=== PATIENT | female | born 1965 | race African-American/Black ===

== ENCOUNTER 2019-12-21 10:50 | Inpatient (IN) ==
[2019-12-21 11:14] VITALS: BMI 28.3
--- NOTE | 2019-12-21 12:11 | DR.AMS ---
HPI Time Seen Time Seen by Provider: 12/21/19 12:00 PCP Primary Care Physician: RUSSELL HPI Comment HPI Comment: PATIENT IS 54YR OLD FEMALE IN ER WITH ALTERED MENTAL STATUES AND MENTAL HEALTH ABNORMALITY GOING ON FOR PAST ONE MONTH. PATIENT IS NOT ANSWERING QUESTIONS CURRENTLY FROM ME. SAID SHE IS NOT EATING AND IS HALLUCINATING. THIS MORNING WAS SITTING ON THE PORCH OF HER NEIGHBOR TRYING TO GET IN THAT HOUSE. FAMILY HAVE NOT OBSERVE COUGH, CONGESTION, VOMITING OR DIARRHEA. PATIENT IS PARANOID. HAVE MILD ANXIETY THAT SHE TAKES XANAX FOR. DAVID JAY IS NOT SLEEPING WELL FOR SEVERAL DAYS. Complaint Cheif Complaint Doctors Comments: AMS AND MENTAL HEALTH ISSUES FOR PAST ONE MONTH. Chief Complaint:: PT'S FAMILY STATES PT HAS BEEN HAVING SOME MENTAL ISSUES THE PAST MONTH. PT'S STATES PT DIDNT SLEEP ALL NIGHT SHE WAS UP AND DOWN. PT'S STATES SHE WAS CONFUSED AND WAS TRYING TO GET INTO THE NEIGHBORS HOUSE THISMORNING AND DIDN'T KNOW WHERE SHE WAS. PT IS NOT RESPONDING VERBALLY. PT HAS A TIGHT BOX TENDER TO A VITAMIN WATER BOTTLE. PT WILL NOT OPEN EYES. PT RESPONDS TO VERBAL STIMULI. COVID-19 Coronavirus risk:travel/contact w/high risk person: No Has patient experienced Coronavirus symptoms: No Source History Provided: Family Member and EMS Mode of Arrival Mode of Arrival: EMS Timing Onset of Chief Complaint: 12/21/19 Came On: Gradually Symptoms: Worsening Duration Duration: Constant Duration: Weeks Quality Quality: Change in Behavior and Confusion Severity Severity: Severe Context Recent: None History Of: None Associated Signs and Symptoms Associated Signs and Symptoms: Generalized Weakness, Change in Behavior, Confusion and Decreased Oral Intake PMH PMH Past Medical History: Yes Past Medical History: Asthma, GERD and Hypertension Past Surgical History: Yes Surgical History: Hysterectomy Family History History of Family Medical Conditions: No Social History Does any household member use tobacco: No Alcohol Use: None Do you use any recreational Drugs:: No Lives With: Family Lives Where: Home Travel Risk Coronavirus risk:travel/contact w/high risk person: No Has patient experienced Coronavirus symptoms: No Infectious screening In the last 2 months have you had wt loss of >10#?: NO Have you had fever, night sweats or hemotysis?: No Have you traveled outside the country in the last 6 months?: No Isolation: Standard ROS Review of Systems Constitutional: See HPI, Weakness, Fatigue, Loss of Appetite (NOT EATING OR DRINKING FLUID.) and Other (PATIENT NOT COMMUNICATING AT THIS TIME. BY BEDSIDE GIVEN HISTORY.); negative Fever Eyes: No Symptoms Reported and See HPI ENTM: No Symptoms Reported and See HPI; negative Nose Discharge and Nose Congestion Respiratoy: No Symptoms Reported and See HPI; negative Moist Cough, Short of Breath and Wheezing Cardiovascular: No Symptoms Reported and See HPI; negative Chest Pain and Edema Gastrointestinal/Abdominal: No Symptoms Reported and See HPI; negative Abdominal Pain, Diarrhea and Vomiting Genitourinary: No Symptoms Reported and See HPI; negative Dysuria Neurological: See HPI and Weakness; negative Dizziness Musculoskeletal: No Symptoms Reported and See HPI; negative Back Pain and Muscle Pain Integumentary: See HPI and Dryness; negative Change in Color, Rash and Juandice Hematologic/Lymphatic: No Symptoms Reported and See HPI; negative Easy Bruising and Swollen Glands Endocrine: See HPI and Decreased Appetite; negative Increased Urine (DECREASE URINE OUT PUT.) Psychiatric: No Symptoms Reported and See HPI All Other Systems: Reviewed and Negative PE Vitals Vital Signs: Temp Pulse Resp BP Pulse Ox 12/21/19 10:50 98.9 F 127 H 22 154/103 98 02/19/12 20:04 148/90 General Limitations: Other (NOT COMMUNICATING.) General Appearance: Alert and In No Apparent Distress Head Head Exam: Normal Inspection and Atraumatic Head Exam Physical: Other (NONE NOTED.) Eyes Eye exam: Normal Appearance; negative Scleral Icterus and Conjunctival Injection Pupils: Regular, Round: Bilateral and Reactive: Bilateral ENT ENT Exam: Normal Exam, Normal Oropharynx, Normal External Ear Exam and TM's Normal Bilaterally External Ear Exam: Normal External Inspection; negative Mastoid Tenderness TM/Canal Exam: Bilateral: Normal Nose Exam: Normal Nose Exam; negative Sinus Tenderness, Nasal Deviation and Septal Hematoma Mouth Exam: Normal Inspection; negative Lip Swelling and Tongue Swelling Throat Exam: Normal Inspection; negative Tonsillar Erythema, Tonsillomegaly and Tonsillar Exudate Neck Neck Exam: Normal Inspection and Trachea Midline; negative Tenderness and Lymphadenopathy Chest Chest Inspection: Normal Inspection and Symmetric Chest Wall Rise; negative Tenderness Respiratory Respiratory Exam: Normal Lung Sounds Bilat; negative Accessory Muscle Use, Chest Wall Tenderness and Respiratory Distress Respiratory Exam: Bilateral: Clear to Auscultation Cardiovascular Cardiovascular Exam: Regular Rate, Normal Rhythm and Normal Heart Sounds; negative Systolic Murmur and Diastolic Murmur Abdominal Exam Abdominal Exam: Normal Inspection, Normal Bowel Sounds and Soft; negative Tenderness Extremities Extremities Exam: Normal Inspection; negative Tenderness, Normal Capillary Refill and Edema Back Back Exam: Normal Inspection; negative (R) CVA Tenderness, (L) CVA Tenderness and Paraspinal Tenderness Neurological Neurological Exam: Alert (EYES KEPT CLOSE.); negative Motor Sensory Deficit Speech: Other Cranial Nerve Exam: Gag reflex (XI): Normal Upper Motor Neuron Exam: Babinski Sign: Normal Psychological Psychiatric Exam: Flat Affect Skin Skin Exam: Dry MDM Additional Information Obtained Additional Information Obtained From: Old Records and Family Differential Diagnosis Metabolic: Dehydration, Hypercalcemia, Hypernatremia, Hypoglycemia and Hyponatremia Structural: CVA and Mass Lesion Infectious: Sepsis and UTI (HALLUCINATIONS, DELUSIONS, AL, PNEUMONIA) Environmental: Hyperthermia and Hypothermia COURSE Treatment Treatment: SEE ORDERS. NS 1L IV BOLUS. Consultation Consultation Comments: DISCUSSED PATIENT WITH LOU BORGES. HE WILL ADMIT PATIENT. Education/Counseling Education/Counseling: Patient Educated On: Diagnosis and Needs for Follow Up ROR Labs Reviewed Laboratory Results Reviewed?: Yes Result Diagrams: 12/26/19 04:45 12/26/19 04:45 Laboratory: WBC 8.2 X10^3/uL (3.6-10.0) 12/21/19 12: RBC 4.59 X10^6/uL (3.5-5.4) 12/21/19 12:19 Hgb 13.6 g/dL (12.0-16.0) 12/21/19 12:19 Hct 41.0 % (36.0-47.0) 12/21/19 12:19 MCV 89.3 fL (80.0-100.0) 12/21/19 12:19 MCH 29.7 pg (27.0-34.0) 12/21/19 12:19 MCHC 33.2 g/dL (33.0-35.0) 12/21/19 12:19 RDW 14.5 % (11.6-16.5) 12/21/19 12:19 Plt Count 240 X10^3/uL (150.0-450.0) 12/21/19 12:19 MPV 8.5 fL (7.4-11.0) 12/21/19 12:19 Neut % (Auto) 77.5 % (42.0-75.0) H 10/16/20 12:19 Lymph % (Auto) 14.1 % (21.0-51.0) L 12/21/19 12:19 [place] % (Auto) 7.0 % (0.0-13.0) 12/21/19 12:19 Eos % (Auto) 0.6 % (0.9-2.9) L 12/21/19 12:19 Baso % (Auto) 0.8 % (0.2-1.0) 12/21/19 12:19 Neut # (Auto) 6.3 x10^3/uL (2.2-4.8) H 12/21/19 12:19 Lymph # (Auto) 1.2 X10^3/uL (1.3-2.9) L 12/21/19 12:19 [place] # (Auto) 0.6 x10^3/uL (0.3-0.8) 12/21/19 12:19 Eos # (Auto) 0.1 x10^3/uL (0.0-0.2) 12/21/19 12:19 Baso # (Auto) 0.1 X10^3/uL (0.0-0.1) 12/21/19 12:19 Absolute Nucleated RBC 0.1 /100WBC 12/21/19 12:19 Sodium 144 mmol/L (136-145) 12/21/19 12:19 Corrected Sodium TNP 12/21/19 12:19 Potassium 4.1 mmol/L (3.5-5.1) 12/21/19 12:19 Chloride 107 mmol/L (98-107) 12/21/19 12:19 Carbon Dioxide 23.4 mmol/L (21-32) 12/21/19 12:19 BUN 26 mg/dL (7-18) H 12/21/19 12:19 Creatinine 1.42 mg/dL (0.55-1.02) H 12/21/19 12:19 Est GFR (MDRD) Af Amer 49 (>60) L 12/21/19 12:19 Est GFR (MDRD) Non-Af 41 (>60) L 12/21/19 12:19 Glucose 93 mg/dL (65-99) 12/21/19 12:19 Calcium 9.4 mg/dL (8.5-10.1) 12/21/19 12:19 Corrected Calcium TNP 12/21/19 12:19 Magnesium 2.5 mg/dL (1.7-2.9) 12/21/19 12:19 Total Bilirubin 0.40 mg/dL (0.2-1.0) 12/21/19 12:19 AST 49 Units/L (15-37) H 12/21/19 12:19 ALT 52 Units/L (12-78) 12/21/19 12:19 Alkaline Phosphatase 118 Units/L (46-116) H 12/21/19 12:19 Creatine Kinase 2401 Units/L (26-192) H 12/21/19 12:19 CK-MB (CK-2) 7.9 ng/mL (0-4.0) H* 12/21/19 12:19 CK/CKMB % Calc 0.3 % (<4) 12/21/19 12:19 Troponin I < 0.02 ng/mL (0-1.5) 12/21/19 12:19 Total Protein 9.3 g/dL (6.4-8.2) H 12/21/19 12:19 Albumin 3.9 g/dL (3.4-5.0) 12/21/19 12:19 Globulin 5.4 g/dL (2.5-4.5) H 12/21/19 12:19 Albumin/Globulin Ratio 0.7 Ratio (1.1-2.1) L 12/21/19 12:19 TSH 3rd Generation 0.275 uIU/mL (0.358-3.74) L 12/21/19 12:19 Salicylates < 2.8 mg/dL (2.8-20) L 12/21/19 12:19 Acetaminophen 0.0 ug/mL (10-30) L 12/21/19 12:19 Ethyl Alcohol mg/dL < 3 mg/dL (0-19.9) 12/21/19 12:19 XRAY XRAY Interpreted by: Radiologist (REPORTS NOTED AND DISCUSSED WITH PATIENT AND HER SON.) and Self EKG Rhythm: ST Opioid Opioid Risk Tool Age (Charlie box if 16-45): No History of Preadolescent Sexual Abuse: No Total: 0 Total Score Risk Category: Low Risk Copyright: Adrian LR predicting aberrant behaviors Diagnosis Discharge Problem: Rhabdomyolysis, AMS (altered mental status), Acute dehydration, Abnormal TSH Instructions Instructions: Rhabdomyolysis Confusion Dehydration, Adult, [id number] Psychosis Hypertension, [id number] Form - Blood Pressure Record Sheet Delirium Managing Your Hypertension Forms: Excuse From Work or School Precautions for COVID19 Patient Portal Social Distancing
[2019-12-21 12:30] LABS: BASOPHILS # (AUTO) 0.1 X10^3/uL (0.0-0.1); BASOPHILS % (AUTO) 0.8 % (0.2-1.0); EOSINOPHILS # (AUTO) 0.1 x10^3/uL (0.0-0.2); EOSINOPHILS % (AUTO) 0.6 % (0.9-2.9); HEMOGLOBIN 13.6 g/dL (12.0-16.0); LYMPHOCYTES # (AUTO) 1.2 X10^3/uL (1.3-2.9); LYMPHOCYTES % (AUTO) 14.1 % (21.0-51.0); MEAN CORPUSCULAR HEMOGLOBIN 29.7 pg (27.0-34.0); MEAN CORPUSCULAR HGB CONC 33.2 g/dL (33.0-35.0); MEAN CORPUSCULAR VOLUME 89.3 fL (80.0-100.0); MEAN PLATELET VOLUME 8.5 fL (7.4-11.0); MONOCYTES # (AUTO) 0.6 x10^3/uL (0.3-0.8); NEUTROPHILS # (AUTO) 6.3 x10^3/uL (2.2-4.8); NEUTROPHILS % (AUTO) 77.5 % (42.0-75.0); PLATELET COUNT 240 X10^3/uL (150.0-450.0); RED BLOOD COUNT 4.59 X10^6/uL (3.5-5.4); RED CELL DISTRIBUTION WIDTH 14.5 % (11.6-16.5); WHITE BLOOD COUNT 8.2 X10^3/uL (3.6-10.0)
--- NOTE | 2019-12-21 12:46 | RAD ---
HISTORYSOB, AMSSTUDYCHEST, 1 VIEWCOMPARISONNoneTECHNIQUEAP view of the chestFINDINGSCardiac and mediastinal contours appear normal. Low lung volumes with bronchovascular crowding. No definite consolidation, segmental collapse, pleural effusion or pneumothorax. Soft tissue attenuation limits evaluation.IMPRESSIONNo acute pulmonary process. Low lung volumes.Electronically signed by: Tonny Linder (Dec 21, 2019 12:44:39)
--- NOTE | 2019-12-21 12:46 | CT ---
HISTORY:Altered mental statusStudy: CT brain without contrastComparison:NoneTechnique:Multiple axial images of the brain were obtained without administration of IV contrast. Dose reduction techniques including Automated Exposure Control (AEC) and adjustment of mA and kV were utilized.Findings:There is cerebral volume loss with nonspecific white matter hypoattenuation suggestive of chronic microvascular ischemic changes. No evidence of acute hemorrhage, midline shift, mass effect or abnormal extra-axial fluid collection. The ventricular system is symmetric and nondilated.The soft tissues and osseous structures are unremarkable. The visualized paranasal sinuses are clear.IMPRESSION:1. Mild nonspecific white matter changes that may reflect chronic microvascular disease. No acute intracranial abnormality identified.Electronically signed by: DIXON DONOHUE (Dec 21, 2019 12:45:06)
[2019-12-21 12:50] LABS: BLOOD UREA NITROGEN 26 mg/dL (7-18); CALCIUM 9.4 mg/dL (8.5-10.1); CARBON DIOXIDE 23.4 mmol/L (21-32); CHLORIDE 107 mmol/L (98-107); CREATININE 1.42 mg/dL (0.55-1.02); SODIUM 144 mmol/L (136-145); TROPONIN I < 0.02 ng/mL (0-1.5); eGFR NON BLACK RACES 41 (>60)
[2019-12-21 12:57] LABS: SALICYLATE < 2.8 mg/dL (2.8-20)
[2019-12-21 13:14] LABS: ALANINE AMINOTRANSFERASE 52 Units/L (12-78); ALBUMIN 3.9 g/dL (3.4-5.0); ALKALINE PHOSPHATASE 118 Units/L (46-116); ASPARTATE AMINO TRANSFERASE 49 Units/L (15-37); BLOOD ALCOHOL < 3 mg/dL (0-19.9); TOTAL PROTEIN 9.3 g/dL (6.4-8.2); TSH (3RD GENERATION) 0.275 uIU/mL (0.358-3.74)
[2019-12-21 13:23] LABS: CKMB % 0.3 % (<4); CREATINE KINASE 2401 Units/L (26-192); CREATINE KINASE MB 7.9 ng/mL (0-4.0)
[2019-12-21] MEDS ORDERED: NS 1000 ML 1,000 ML ONE ×2 (14:17→17:21)
[2019-12-21] MEDS ORDERED: NS 1000 ML 1,000 ML IV ONE (14:30)
[2019-12-21] MEDS: NS 1000 ML 1,000 ML IV SCH (17:32)
[2019-12-21] MEDS ORDERED: XANAX PO PRN (17:48)
[2019-12-21 20:25] LABS: BILIRUBIN,URINE NEGATIVE (NEGATIVE); BLOOD/HEMOGLOBIN,URINE NEGATIVE (NEGATIVE); GLUCOSE, URINE NEGATIVE (NEGATIVE); KETONES,URINE 3+ (NEGATIVE); LEUKOCYTE ESTERASE ,URINE NEGATIVE (NEGATIVE); NITRITES,URINE NEGATIVE (NEGATIVE); PROTEIN,URINE 1+ (NEGATIVE); UROBILINOGEN,URINE NORMAL (NORMAL)
[2019-12-21 20:28] LABS: APPEARANCE,URINE SLIGHTLY HAZY (CLEAR); COLOR,URINE YELLOW (YELLOW)
[2019-12-21 20:38] LABS: BACTERIA,URINE NEGATIVE /HPF (NEGATIVE); FINE GRANULAR CASTS,URINE RARE /LPF (NEGATIVE); MUCUS,URINE FEW /HPF (NEGATIVE); RBC,URINE NONE SEEN /HPF (0-3); SQUAMOUS EPITHELIAL CELL,UR NEGATIVE /HPF (NEGATIVE)
[2019-12-21] MEDS ORDERED: NORVASC TAB 10 MG ONE (23:07)
[2019-12-21] MEDS ORDERED: RESTORIL CAP 15 MG PO ONE (23:08)
[2019-12-21] MEDS: NORVASC TAB 10 MG PO SCH (23:09)
[2019-12-21] MEDS: RESTORIL CAP 15 MG PO PRN (23:14)
[2019-12-21 23:53] LABS: TROPONIN I < 0.02 ng/mL (0-1.5)
[2019-12-21 23:54] LABS: CREATINE KINASE MB 5.1 ng/mL (0-4.0)
[2019-12-21 23:55] LABS: CKMB % 0.3 % (<4); CREATINE KINASE 1631 Units/L (26-192)
[2019-12-22] MEDS: NS 1000 ML 1,000 ML IV SCH ×3 (02:00→19:07)
[2019-12-22 05:38] LABS: BASOPHILS # (AUTO) 0.1 X10^3/uL (0.0-0.1); BASOPHILS % (AUTO) 1.3 % (0.2-1.0); EOSINOPHILS # (AUTO) 0.2 x10^3/uL (0.0-0.2); EOSINOPHILS % (AUTO) 3.1 % (0.9-2.9); HEMATOCRIT 38.6 % (36.0-47.0); HEMOGLOBIN 12.7 g/dL (12.0-16.0); LYMPHOCYTES # (AUTO) 1.6 X10^3/uL (1.3-2.9); LYMPHOCYTES % (AUTO) 24.6 % (21.0-51.0); MEAN CORPUSCULAR HEMOGLOBIN 29.8 pg (27.0-34.0); MEAN CORPUSCULAR HGB CONC 32.8 g/dL (33.0-35.0); MEAN CORPUSCULAR VOLUME 90.7 fL (80.0-100.0); MEAN PLATELET VOLUME 8.8 fL (7.4-11.0); MONOCYTES # (AUTO) 0.6 x10^3/uL (0.3-0.8); MONOCYTES % (AUTO) 8.7 % (0.0-13.0); NEUTROPHILS # (AUTO) 4.1 x10^3/uL (2.2-4.8); NEUTROPHILS % (AUTO) 62.3 % (42.0-75.0); PLATELET COUNT 226 X10^3/uL (150.0-450.0); RED BLOOD COUNT 4.25 X10^6/uL (3.5-5.4); RED CELL DISTRIBUTION WIDTH 15.1 % (11.6-16.5); WHITE BLOOD COUNT 6.6 X10^3/uL (3.6-10.0)
[2019-12-22 06:14] LABS: ALANINE AMINOTRANSFERASE 40 Units/L (12-78); ALBUMIN 3.3 g/dL (3.4-5.0); ALKALINE PHOSPHATASE 108 Units/L (46-116); ASPARTATE AMINO TRANSFERASE 36 Units/L (15-37); BLOOD UREA NITROGEN 14 mg/dL (7-18); CALCIUM 8.4 mg/dL (8.5-10.1); CARBON DIOXIDE 22.9 mmol/L (21-32); CHLORIDE 107 mmol/L (98-107); CREATININE 0.96 mg/dL (0.55-1.02); SODIUM 142 mmol/L (136-145); TOTAL PROTEIN 8.3 g/dL (6.4-8.2); TROPONIN I < 0.02 ng/mL (0-1.5); eGFR NON BLACK RACES > 60 (>60)
[2019-12-22 06:18] LABS: CKMB % 0.3 % (<4); CREATINE KINASE 1334 Units/L (26-192); CREATINE KINASE MB 4.1 ng/mL (0-4.0)
[2019-12-22] MEDS ORDERED: LEXAPRO ONE (09:21)
[2019-12-22] MEDS: LEXAPRO PO SCH (09:29)
[2019-12-22] MEDS: NORVASC TAB 10 MG PO SCH (09:29)
[2019-12-22] MEDS: MOBIC TAB 15 MG PO SCH (09:29)
[2019-12-22] MEDS ORDERED: MICRO K EXTEN CAP 10 MEQ PO PRN (09:52)
[2019-12-22] MEDS ORDERED: POTASSIUM CHLORIDE LIQ 20 MEQ UDC PO PRN (09:52)
[2019-12-22] MEDS ORDERED: KLOR-CON PO PRN (09:52)
[2019-12-22] MEDS ORDERED: K-RIDER 10 MEQ/NS 100 ML 10 MEQ/100 ML BAG IV PRN (09:52)
--- NOTE | 2019-12-22 11:11 | DR.H&P ---
H&P - History & Physical for Day of: H&P Date: 12/21/19 - Chief Complaint Chief Complaint: ALTERED MENTAL STATUS, HALLUCINATIONS - History of Present Illness History of Present Illness: IS A 54 YEAR OLD PATIENT OF . SHE PRESENTED TO THE ER WITH COMPLAINTS OF ALTERED MENTAL STATUS AND HALLUCINATIONS. PATIENTS SPOUSE REPORTED THAT SYMPTOMS STARTED ABOUT A MONTH AGO. SHE WAS STARTED ON LEXAPRO AND XANAX TID PRN, AND SPOUSE REPORTS THAT HE HAS BEEN ABLE TO MANAGE HER AT HOME UNTIL THE PAST THREE DAYS. HE REPORTS THAT SHE HAS BEEN GETTING OUT OF THE HOUSE AND LAYING IN THE ROAD AND THE NEIGHBORS YARD. WHEN THEY FOUND PATIENT, PATIENT WOULD LOOK AT THEM, BUT WOULD NOT SPEAK OR RESPOND VERBALLY. ON ARRIVAL TO THE ER, PATIENT WAS GRIPPING A WATER BOTTLE TIGHTLY AND WOULD NOT RESPOND VERBALLY TO SPOUSE OR STAFF. PATIENTS SPOUSE REPORTS THAT PATIENT OFTEN APPEARS TO BE TALKING TO PEOPLE WHO ARE NOT THERE AND THAT SHE FEELS LIKE SPIRITS ARE MAKING HER DO THINGS. HE STATES THAT SHE RAISES HER HANDS AND ASKS THE WM FOR PERMISSION BEFORE SHE EATS OR DRINKS ANYTHING. SPOUSE IS REQUESTING BEHAVIORAL ON ARRIVAL TO THE ER, VITALS WERE 98.9-127-22-98%-154/99. LABS WERE OBTAINED. ABNORMAL LAB VALUES INCLUDE THE FOLLOWING: BUN 26, CREATININE 1.42, AST 49, ALK PHOS 118, CREATINE KINASE 2401, CK-MB 7.9, TOTAL PROTEIN 9.3, GLOBULIN 5.4, TSH 0.275. URINALYSIS UNREMARKABLE. TOXICOLOGY UNREMARKABLE. A BRAIN CT WAS OBTAINED AND REVEALED: 1. Mild nonspecific white matter changes that may reflect chronic microvascular disease. No acute intracranial abnormality identified. A CHEST XRAY WAS OBTAINED AND REVEALED: No acute pulmonary process. Low lung volumes. EKG REVEALED: SINUS TACHYCARDIA WITH HR 109. PATIENT WAS GIVEN A NORMAL SALINE BOLUS FOR TREATMENT OF RHABDOMYOLYSIS. SHE WAS ADMITTED FOR FURTHER EVALUATION AND TREAMTENT OF RHABDOMYOLYSIS, ALTERED MENTA STATUS, AND HALLUCINATIONS. SHE WAS STARTED ON NORMAL SALINE AT 150 ML/HR, ZYPREXA 2.5MG PO BID, XANAX 0.25MG PO BID, RESTRORIL 15MG PO HS PRN, AND HER HOME MEDICATIONS OF NORVASC, LEXAPRO, AND MOBIC WERE RESUMED. OTHERWISE, WE PLAN TO FOLLOW UP WITH AM LABS AND CONTINUE TO MONITOR. WHEN PATIENT IS STABLE, WE WILL CONSULT WITH BEHAVIORAL HEALTH. - Past Medical History Past Medical History: Hypertension, Asthma, GERD - Past Surgical History Surgical History: Hysterectomy - Social History Does patient currently use any type of tobacco product: No Have you used tobacco products in the last 12 months: No Type of Tobacco Use: None Does any household member use tobacco: No Alcohol Use: None Drug Use: None - Medications Home Medications: No Known Drug Allergies Allergy (Verified 12/21/19 10:51) CONTINUE taking the following medications RX: alprazolam 0.25 mg PO TID PRN 12/21/19 [History] RX: cyclobenzaprine 10 mg PO BID 12/21/19 [History] RX: escitalopram oxalate 20 mg PO DAILY 12/21/19 [History] RX: meloxicam 15 mg PO DAILY 12/21/19 [History] RX: olmesartan 40 mg PO ONCE 12/21/19 [History] - Review of Systems Constitutional: Weakness Eyes: No Symptoms Reported ENT: No Symptoms Reported Respiratory: No Symptoms Reported Cardiovascular: No Symptoms Reported Gastrointestinal: No Symptoms Reported Genitourinary: No Symptoms Reported Musculoskeletal: No Symptoms Reported Skin: No Symptoms Reported Neurological: See HPI, Confusion - Physical Exam Vital Signs: Temperature 98.1 F Pulse Rate [Left Radial] 97 Pulse Rate 124 Respiratory Rate 20 Blood Pressure [Left Arm] 191/91 Blood Pressure 146/74 O2 Sat by Pulse Oximetry 98 Oriented: Not Oriented Eyes: Normal Ear: Normal Nose: Normal Throat: Normal Respiratory: Diminished Throughout Cardiovascular: Normal : Normal Auscultation: Bowel Sounds: Normal Palpation: Normal Tenderness: Normal Skin: Normal Musculoskeletal: Normal Psychiatric: Other Mood Description: Flat, Suspicious Affect: Flat Speech Pattern: Inappropriate - Assessment/Plan (1) Rhabdomyolysis Qualifiers: Rhabdomyolysis type: non-traumatic Qualified Code(s): M62.82 - Rhabd omyolysis Status: Acute Plan: ADMIT, NORMAL SALINE AT 150 ML/HR (2) Altered mental status Qualifiers: Altered mental status type: unspecified Qualified Code(s): R41.82 - Altered mental status, unspecified Status: Acute Plan: NORMAL SALINE AT 150 ML/HR, ZYPREXA 2.5MG PO BID, XANAX 0.25MG PO BID, RESTRORIL 15MG PO HS PRN, AND HER HOME MEDICATIONS OF NORVASC, LEXAPRO, AND MOBIC WERE RESUMED. (3) Hallucination Status: Acute - Allergies Allergies/Adverse Reactions: Allergies Allergy/AdvReac Type Severity Reaction Status Date / Time No Known Drug Allergies Allergy Verified 12/21/19 10:51
[2019-12-22] MEDS: K-DUR TAB 20 MEQ PO PRN (12:00)
[2019-12-22] MEDS: XANAX PO SCH ×2 (14:26→21:00)
[2019-12-23 05:09] LABS: BASOPHILS # (AUTO) 0.1 X10^3/uL (0.0-0.1); BASOPHILS % (AUTO) 1.2 % (0.2-1.0); EOSINOPHILS # (AUTO) 0.3 x10^3/uL (0.0-0.2); EOSINOPHILS % (AUTO) 5.6 % (0.9-2.9); HEMATOCRIT 36.4 % (36.0-47.0); HEMOGLOBIN 11.9 g/dL (12.0-16.0); LYMPHOCYTES # (AUTO) 2.3 X10^3/uL (1.3-2.9); LYMPHOCYTES % (AUTO) 47.7 % (21.0-51.0); MEAN CORPUSCULAR HEMOGLOBIN 29.7 pg (27.0-34.0); MEAN CORPUSCULAR HGB CONC 32.8 g/dL (33.0-35.0); MEAN CORPUSCULAR VOLUME 90.6 fL (80.0-100.0); MONOCYTES # (AUTO) 0.4 x10^3/uL (0.3-0.8); MONOCYTES % (AUTO) 8.3 % (0.0-13.0); NEUTROPHILS # (AUTO) 1.8 x10^3/uL (2.2-4.8); NEUTROPHILS % (AUTO) 37.2 % (42.0-75.0); PLATELET COUNT 207 X10^3/uL (150.0-450.0); RED BLOOD COUNT 4.02 X10^6/uL (3.5-5.4); RED CELL DISTRIBUTION WIDTH 14.8 % (11.6-16.5); WHITE BLOOD COUNT 4.9 X10^3/uL (3.6-10.0)
[2019-12-23 05:26] LABS: ALANINE AMINOTRANSFERASE 36 Units/L (12-78); ALBUMIN 2.7 g/dL (3.4-5.0); ALKALINE PHOSPHATASE 97 Units/L (46-116); ASPARTATE AMINO TRANSFERASE 22 Units/L (15-37); BLOOD UREA NITROGEN 13 mg/dL (7-18); CALCIUM 8.4 mg/dL (8.5-10.1); CARBON DIOXIDE 24.5 mmol/L (21-32); CHLORIDE 110 mmol/L (98-107); COR CA(FOR HYPOALB) 9.4 mg/dL (8.5-10.1); CREATININE 1.02 mg/dL (0.55-1.02); MAGNESIUM 2.1 mg/dL (1.7-2.9); SODIUM 144 mmol/L (136-145); TOTAL PROTEIN 7.3 g/dL (6.4-8.2); eGFR NON BLACK RACES 60 (>60)
[2019-12-23] MEDS ORDERED: LEXAPRO ONE (08:49)
[2019-12-23] MEDS: XANAX PO SCH ×2 (09:26→20:44)
[2019-12-23] MEDS: NORVASC TAB 10 MG PO SCH (09:26)
[2019-12-23] MEDS: LEXAPRO PO SCH (09:26)
[2019-12-23] MEDS: NS 1000 ML 1,000 ML IV SCH ×2 (09:26→17:32)
[2019-12-23] MEDS: K-DUR TAB 20 MEQ PO PRN (09:27)
[2019-12-23] MEDS: MOBIC TAB 15 MG PO SCH (09:27)
[2019-12-23 09:53] LABS: CKMB % 0.2 % (<4); CREATINE KINASE 590 Units/L (26-192); CREATINE KINASE MB 1.3 ng/mL (0-4.0); TROPONIN I < 0.02 ng/mL (0-1.5)
[2019-12-24] MEDS: NS 1000 ML 1,000 ML IV SCH ×3 (01:00→11:15)
[2019-12-24 05:15] LABS: BASOPHILS # (AUTO) 0.1 X10^3/uL (0.0-0.1); EOSINOPHILS # (AUTO) 0.3 x10^3/uL (0.0-0.2); EOSINOPHILS % (AUTO) 4.6 % (0.9-2.9); HEMATOCRIT 42.1 % (36.0-47.0); HEMOGLOBIN 13.7 g/dL (12.0-16.0); LYMPHOCYTES # (AUTO) 1.7 X10^3/uL (1.3-2.9); LYMPHOCYTES % (AUTO) 26.5 % (21.0-51.0); MEAN CORPUSCULAR HEMOGLOBIN 29.4 pg (27.0-34.0); MEAN CORPUSCULAR HGB CONC 32.6 g/dL (33.0-35.0); MEAN CORPUSCULAR VOLUME 90.5 fL (80.0-100.0); MEAN PLATELET VOLUME 9.2 fL (7.4-11.0); MONOCYTES # (AUTO) 0.4 x10^3/uL (0.3-0.8); MONOCYTES % (AUTO) 6.6 % (0.0-13.0); NEUTROPHILS # (AUTO) 3.9 x10^3/uL (2.2-4.8); NEUTROPHILS % (AUTO) 61.3 % (42.0-75.0); PLATELET COUNT 219 X10^3/uL (150.0-450.0); RED BLOOD COUNT 4.65 X10^6/uL (3.5-5.4); RED CELL DISTRIBUTION WIDTH 14.9 % (11.6-16.5); WHITE BLOOD COUNT 6.3 X10^3/uL (3.6-10.0)
[2019-12-24 05:27] LABS: ALANINE AMINOTRANSFERASE 41 Units/L (12-78); ALBUMIN 3.3 g/dL (3.4-5.0); ALKALINE PHOSPHATASE 120 Units/L (46-116); ASPARTATE AMINO TRANSFERASE 26 Units/L (15-37); BLOOD UREA NITROGEN 11 mg/dL (7-18); CARBON DIOXIDE 26.5 mmol/L (21-32); CHLORIDE 106 mmol/L (98-107); CKMB % 0.4 % (<4); COR CA(FOR HYPOALB) 9.6 mg/dL (8.5-10.1); CREATINE KINASE 432 Units/L (26-192); CREATINE KINASE MB 1.5 ng/mL (0-4.0); CREATININE 1.05 mg/dL (0.55-1.02); SODIUM 143 mmol/L (136-145); TOTAL PROTEIN 8.7 g/dL (6.4-8.2); TROPONIN I < 0.02 ng/mL (0-1.5); eGFR NON BLACK RACES 58 (>60)
[2019-12-24] MEDS ORDERED: LEXAPRO ONE (07:59)
[2019-12-24] MEDS: MOBIC TAB 15 MG PO SCH (08:06)
[2019-12-24] MEDS: LEXAPRO PO SCH (08:06)
[2019-12-24] MEDS: XANAX PO SCH (08:07)
[2019-12-24] MEDS: NORVASC TAB 10 MG PO SCH (08:07)
--- NOTE | 2019-12-24 08:44 | PCM.PROG ---
Progress Note - Progress Note for Day of Date of Exam: 12/23/19 - Subjective Subjective: IS BEING TREATED FOR RHABDOMYOLYSIS, DEHYDRATION, AND ALTERED MENTAL STATUS. FAMILY WANTS PATIENT SENT TO [facility], HOWEVER, WE HAVE EXPLAINED TO THEM THAT PATIENT MUST BE CLEARED FROM A MEDICAL STANDPOINT FIRST. TODAY, SHE IS ALERT, SITTING UP IN BED ON MORNING ROUNDS. SHE REPONDS VERBALLY, BUT HER VERBAL RESPONSES ARE INAPPROPRIATE. SHE CONTINUES TO RAISE HER HANDS AND LOOK TOWARDS THE CEILING. HER STATES, SHE RAISES HER HANDS LIKE THIS AND PRAISES GOD AND ASKS GOD FOR PERMISSION BEFORE SHE EATS OR DRINKS ANYTHING. HER VITALS THIS MORNING ARE: 97.8-94-21-93%-121/90. LABS WERE OBTAINED. ABNORMAL LAB VALUES INCLUDE THE FOLLOWING: HGB 11.9, CHLORIDE 110, C ALCIUM 8.4, CREATINE KINASE 590, ALBUMIN 2.7, GLOBULIN 4.6. SHE IS CURRENTLY RECEIVING NS AT 150 ML/HR, ZYPREXA 2.5MG PO BID, XANAX 0.25MG PO BID, NORVASC 10MG PO DAILY, LEXAPRO 20MG PO DAILY, MOBIC 15MG PO DAILY, AND THE POTASSIUM PROTOCOL. WHEN RHABDOMYOLYSIS IMPROVES, WE WILL CONSULT WITH [facility]. OTHERWISE, WE PLAN TO FOLLOW UP WITH AM LABS AND CONTINUE TO MONITOR. - Past Medical Family Social History Past Med/Fam/Surg Hx: No changes since H&P Allergies: Allergies No Known Drug Allergies Allergy (Verified 12/21/19 10:51) - Review of Systems ROS: No change since H&P - Vital Signs and I&O's Vital Signs: Temperature 98.0 F Pulse Rate [Left Radial] 97 Pulse Rate 102 Respiratory Rate 22 Blood Pressure [Left Arm] 191/91 Blood Pressure 171/81 O2 Sat by Pulse Oximetry 97 Intake and Output: Intake & Output 12/21/19 12/22/19 12/23/19 12/24/19 11:59 11:59 11:59 11:59 Intake Total 1974 4675 / 4675 6575 / 6575 Output Total 2150 / 2150 3150 / 3150 8450 / 8450 Balance -175 / -175 1525 / 1525 -1875 / -1875 - Physical Exam Oriented: Not Oriented Eyes: Normal Ear: Normal Nose: Normal Throat: Normal Respiratory: Normal Cardiovascular: Normal : Normal Auscultation: Bowel Sounds: Normal Palpation: Normal Tenderness: Normal Skin: Normal Musculoskeletal: Normal Mood Description: Suspicious Speech Pattern: Clear, Inappropriate - Laboratory and Diagnostics Result Diagrams: 12/24/19 04:30 12/24/19 04:30 Labs: Laboratory WBC 6.3 X10^3/uL (3.6-10.0) 12/24/19 04:30 RBC 4.65 X10^6/uL (3.5-5.4) 12/24/19 04:30 Hgb 13.7 g/dL (12.0-16.0) 12/24/19 04:30 Hct 42.1 % (36.0-47.0) 12/24/19 04:30 MCV 90.5 fL (80.0-100.0) 12/24/19 04:30 MCH 29.4 pg (27.0-34.0) 12/24/19 04:30 MCHC 32.6 g/dL (33.0-35.0) L 12/24/19 04:30 RDW 14.9 % (11.6-16.5) 12/24/19 04:30 Plt Count 219 X10^3/uL (150.0-450.0) 12/24/19 04:30 MPV 9.2 fL (7.4-11.0) 12/24/19 04:30 Neut % (Auto) 61.3 % (42.0-75.0) 12/24/19 04:30 Lymph % (Auto) 26.5 % (21.0-51.0) 12/24/19 04:30 [place] % (Auto) 6.6 % (0.0-13.0) 12/24/19 04:30 Eos % (Auto) 4.6 % (0.9-2.9) H 12/24/19 04:30 Baso % (Auto) 1.0 % (0.2-1.0) 12/24/19 04:30 Neut # (Auto) 3.9 x10^3/uL (2.2-4.8) 12/24/19 04:30 Lymph # (Auto) 1.7 X10^3/uL (1.3-2.9) 12/24/19 04:30 [place] # (Auto) 0.4 x10^3/uL (0.3-0.8) 12/24/19 04:30 Eos # (Auto) 0.3 x10^3/uL (0.0-0.2) H 12/24/19 04:30 Baso # (Auto) 0.1 X10^3/uL (0.0-0.1) 12/24/19 04:30 Absolute Nucleated RBC 0.1 /100WBC 12/24/19 04:30 Sodium 143 mmol/L (136-145) 12/24/19 04:30 Corrected Sodium TNP 12/24/19 04:30 Potassium 3.7 mmol/L (3.5-5.1) 12/24/19 04:30 Chloride 106 mmol/L (98-107) 12/24/19 04:30 Carbon Dioxide 26.5 mmol/L (21-32) 12/24/19 04:30 BUN 11 mg/dL (7-18) 12/24/19 04:30 Creatinine 1.05 mg/dL (0.55-1.02) H 12/24/19 04:30 Est GFR (MDRD) Af Amer > 60 (>60) 12/24/19 04:30 Est GFR (MDRD) Non-Af 58 (>60) L 12/24/19 04:30 Glucose 89 mg/dL (65-99) 12/24/19 04:30 Calcium 9.0 mg/dL (8.5-10.1) 12/24/19 04:30 Corrected Calcium 9.6 mg/dL (8.5-10.1) 12/24/19 04:30 Magnesium 2.1 mg/dL (1.7-2.9) 12/23/19 04:25 Total Bilirubin 0.10 mg/dL (0.2-1.0) L 12/24/19 04:30 AST 26 Units/L (15-37) 12/24/19 04:30 ALT 41 Units/L (12-78) 12/24/19 04:30 Alkaline Phosphatase 120 Units/L (46-116) H 12/24/19 04:30 Creatine Kinase 432 Units/L (26-192) H 12/24/19 04:30 CK-MB (CK-2) 1.5 ng/mL (0-4.0) 12/24/19 04:30 CK/CKMB % Calc 0.4 % (<4) 12/24/19 04:30 Troponin I < 0.02 ng/mL (0-1.5) 12/24/19 04:30 Total Protein 8.7 g/dL (6.4-8.2) H 12/24/19 04:30 Albumin 3.3 g/dL (3.4-5.0) L 12/24/19 04:30 Globulin 5.4 g/dL (2.5-4.5) H 12/24/19 04:30 Albumin/Globulin Ratio 0.6 Ratio (1.1-2.1) L 12/24/19 04:30 TSH 3rd Generation 0.275 uIU/mL (0.358-3.74) L 12/21/19 12:19 Specimen Type Catherized urine 12/21/19 19:51 Urine Color Yellow (YELLOW) 12/21/19 19:51 Urine Appearance Slightly hazy (CLEAR) 12/21/19 19:51 Urine pH 6.0 (5.0 - 8.0) 12/21/19 19:51 Ur Specific [place] 1.020 (1.000-1.030) 12/21/19 19:51 Urine Protein 1+ (NEGATIVE) 12/21/19 19:51 Urine Glucose (UA) Negative (NEGATIVE) 12/21/19 19:51 Urine Ketones 3+ (NEGATIVE) 12/21/19 19:51 Urine Occult Blood Negative (NEGATIVE) 12/21/19 19:51 Urine Nitrite Negative (NEGATIVE) 12/21/19 19:51 Urine Bilirubin Negative (NEGATIVE) 12/21/19 19:51 Urine Urobilinogen Normal (NORMAL) 12/21/19 19:51 Ur Leukocyte Esterase Negative (NEGATIVE) 12/21/19 19:51 Urine RBC None seen /HPF (0-3) 12/21/19 19:51 Urine WBC None seen /HPF (0-5) 12/21/19 19:51 Ur Squamous Epith Cells Negative /HPF (NEGATIVE) 12/21/19 19:51 Urine Bacteria Negative /HPF (NEGATIVE) 12/21/19 19:51 Fine Granular Casts Rare /LPF (NEGATIVE) 12/21/19 19:51 Urine Mucus Few /HPF (NEGATIVE) 12/21/19 19:51 Ur Culture Indicated? No/not indicated 12/21/19 19:51 Salicylates < 2.8 mg/dL (2.8-20) L 12/21/19 12:19 Urine Opiates Screen Negative (NEG=<300) 12/21/19 19:51 Urine Methadone Screen Negative (NEG=<300) 12/21/19 19:51 Acetaminophen 0.0 ug/mL (10-30) L 12/21/19 12:19 Ur Barbiturates Screen Negative (NEG=<200) 12/21/19 19:51 Ur Phencyclidine Scrn Negative (NEG=<25) 12/21/19 19:51 Ur Amphetamines Screen Negative (NEG=<1000) 12/21/19 19:51 U Benzodiazepines Scrn Negative (NEG=<200) 12/21/19 19:51 Urine Cocaine Screen Negative (NEG=<300) 12/21/19 19:51 U Marijuana (THC) Screen Negative (NEG=<50) 12/21/19 19:51 Ethyl Alcohol mg/dL < 3 mg/dL (0-19.9) 12/21/19 12:19 - Plan (1) Rhabdomyolysis Status: Acute Qualifiers: Rhabdomyolysis type: non-traumatic Qualified Code(s): M62.82 - Rhabdomyolysis Plan: NORMAL SALINE AT 150 ML/HR (2) Altered mental status Status: Acute Qualifiers: Altered mental status type: unspecified Qualified Code(s): R41.82 - Altered mental status, unspecified Plan: NORMAL SALINE AT 150 ML/HR, ZYPREXA 2.5MG PO BID, XANAX 0.25MG PO BID, RESTRORIL 15MG PO HS PRN, AND HER HOME MEDICATIONS OF NORVASC, LEXAPRO, AND MOBIC WERE RESUMED. (3) Hallucination Status: Acute
[2019-12-24] MEDS ORDERED: HALDOL INJ IM PRN (09:53)
[2019-12-24] MEDS ORDERED: ZyPREXA TAB 5 MG ONE ×2 (09:59→18:44)
[2019-12-24] MEDS: K-DUR TAB 20 MEQ PO PRN (20:14)
[2019-12-24] MEDS: RESTORIL CAP 15 MG PO PRN (20:15)
[2019-12-25 05:10] LABS: BASOPHILS # (AUTO) 0.1 X10^3/uL (0.0-0.1); EOSINOPHILS # (AUTO) 0.2 x10^3/uL (0.0-0.2); EOSINOPHILS % (AUTO) 4.3 % (0.9-2.9); HEMATOCRIT 40.5 % (36.0-47.0); HEMOGLOBIN 13.1 g/dL (12.0-16.0); LYMPHOCYTES # (AUTO) 1.7 X10^3/uL (1.3-2.9); MEAN CORPUSCULAR HEMOGLOBIN 29.4 pg (27.0-34.0); MEAN CORPUSCULAR HGB CONC 32.4 g/dL (33.0-35.0); MEAN CORPUSCULAR VOLUME 90.7 fL (80.0-100.0); MEAN PLATELET VOLUME 8.6 fL (7.4-11.0); MONOCYTES # (AUTO) 0.4 x10^3/uL (0.3-0.8); MONOCYTES % (AUTO) 6.8 % (0.0-13.0); NEUTROPHILS # (AUTO) 2.9 x10^3/uL (2.2-4.8); NEUTROPHILS % (AUTO) 54.9 % (42.0-75.0); PLATELET COUNT 224 X10^3/uL (150.0-450.0); RED BLOOD COUNT 4.46 X10^6/uL (3.5-5.4); RED CELL DISTRIBUTION WIDTH 15.1 % (11.6-16.5); WHITE BLOOD COUNT 5.3 X10^3/uL (3.6-10.0)
[2019-12-25 05:23] LABS: ALANINE AMINOTRANSFERASE 38 Units/L (12-78); ALBUMIN 2.8 g/dL (3.4-5.0); ALKALINE PHOSPHATASE 101 Units/L (46-116); ASPARTATE AMINO TRANSFERASE 21 Units/L (15-37); BLOOD UREA NITROGEN 13 mg/dL (7-18); CALCIUM 8.7 mg/dL (8.5-10.1); CARBON DIOXIDE 25.9 mmol/L (21-32); CHLORIDE 109 mmol/L (98-107); COR CA(FOR HYPOALB) 9.7 mg/dL (8.5-10.1); CREATININE 1.14 mg/dL (0.55-1.02); SODIUM 143 mmol/L (136-145); TOTAL PROTEIN 7.6 g/dL (6.4-8.2); eGFR NON BLACK RACES 52 (>60)
[2019-12-25] MEDS ORDERED: LEXAPRO ONE (08:05)
[2019-12-25] MEDS: LEXAPRO PO SCH (08:29)
[2019-12-25] MEDS: MOBIC TAB 15 MG PO SCH (08:29)
[2019-12-25] MEDS: NORVASC TAB 10 MG PO SCH (08:30)
[2019-12-25] MEDS ORDERED: COLACE CAP 100 MG PO PRN (09:00)
[2019-12-25] MEDS ORDERED: MILK OF MAGNESIA PO PRN (09:00)
[2019-12-25] MEDS: ZIAC 5/6.25 MG PO SCH (10:17)
[2019-12-25] MEDS: NS 1000 ML 1,000 ML IV SCH ×2 (13:23)
[2019-12-25] MEDS: RESTORIL CAP 15 MG PO PRN (20:14)
[2019-12-26] MEDS: NS 1000 ML 1,000 ML IV SCH ×2 (02:00→11:51)
[2019-12-26 05:16] LABS: BASOPHILS # (AUTO) 0.1 X10^3/uL (0.0-0.1); BASOPHILS % (AUTO) 0.9 % (0.2-1.0); EOSINOPHILS # (AUTO) 0.3 x10^3/uL (0.0-0.2); EOSINOPHILS % (AUTO) 5.4 % (0.9-2.9); HEMATOCRIT 38.4 % (36.0-47.0); HEMOGLOBIN 12.5 g/dL (12.0-16.0); LYMPHOCYTES # (AUTO) 1.8 X10^3/uL (1.3-2.9); LYMPHOCYTES % (AUTO) 30.5 % (21.0-51.0); MEAN CORPUSCULAR HEMOGLOBIN 29.4 pg (27.0-34.0); MEAN CORPUSCULAR HGB CONC 32.5 g/dL (33.0-35.0); MEAN CORPUSCULAR VOLUME 90.4 fL (80.0-100.0); MEAN PLATELET VOLUME 8.8 fL (7.4-11.0); MONOCYTES # (AUTO) 0.5 x10^3/uL (0.3-0.8); MONOCYTES % (AUTO) 7.9 % (0.0-13.0); NEUTROPHILS # (AUTO) 3.2 x10^3/uL (2.2-4.8); NEUTROPHILS % (AUTO) 55.3 % (42.0-75.0); PLATELET COUNT 234 X10^3/uL (150.0-450.0); RED BLOOD COUNT 4.25 X10^6/uL (3.5-5.4); RED CELL DISTRIBUTION WIDTH 14.5 % (11.6-16.5); WHITE BLOOD COUNT 5.7 X10^3/uL (3.6-10.0)
[2019-12-26 05:29] LABS: ALANINE AMINOTRANSFERASE 37 Units/L (12-78); ALBUMIN 2.8 g/dL (3.4-5.0); ALKALINE PHOSPHATASE 99 Units/L (46-116); ASPARTATE AMINO TRANSFERASE 22 Units/L (15-37); BLOOD UREA NITROGEN 16 mg/dL (7-18); CALCIUM 8.6 mg/dL (8.5-10.1); CARBON DIOXIDE 27.5 mmol/L (21-32); CHLORIDE 108 mmol/L (98-107); COR CA(FOR HYPOALB) 9.6 mg/dL (8.5-10.1); CREATININE 1.12 mg/dL (0.55-1.02); SODIUM 144 mmol/L (136-145); TOTAL PROTEIN 7.4 g/dL (6.4-8.2); eGFR NON BLACK RACES 53 (>60)
[2019-12-26] MEDS ORDERED: LEXAPRO ONE (08:10)
[2019-12-26 08:19] VITALS: BP 148/79
[2019-12-26] MEDS: NORVASC TAB 10 MG PO SCH (08:29)
[2019-12-26] MEDS: LEXAPRO PO SCH (08:29)
[2019-12-26] MEDS: MOBIC TAB 15 MG PO SCH (08:29)
[2019-12-26] MEDS: K-DUR TAB 20 MEQ PO PRN (08:30)
[2019-12-26] MEDS: ZIAC 5/6.25 MG PO SCH (08:30)
== END 2019-12-26 14:00 | disposition home or self-care (01) | DRG 558 ==
LOC: ER 10:50 → ICU 10:50 → OBSVTOIN 17:03 → ICU 18:10
PROVIDERS: ADMIT Internal Medicine; ATTEND Obstetrics & Gynecology Obstetrics
DX: R94.31 Abnormal electrocardiogram [ECG] [EKG]; R41.82 Altered mental status, unspecified; Z20.828 Contact with and (suspected) exposure to other viral communicable diseases; E86.0 Dehydration; R44.3 Hallucinations, unspecified; M62.82 Rhabdomyolysis